=== PATIENT | female | born 1960 | race Caucasian/White ===

== ENCOUNTER → 2021-04-26 | Outpatient (CLI) | payer MEDICARE | LOC: KOH-I 16:12 | DX: M50.30 Other cervical disc degeneration, unspecified cervical region (principal) | CPT/HCPCS: 73030 ==

== ENCOUNTER → 2021-05-23 | Outpatient (CLI) | payer MEDICARE | LOC: KOH-I 13:41 | DX: M50.30 Other cervical disc degeneration, unspecified cervical region (principal); M47.812 Spondylosis without myelopathy or radiculopathy, cervical region | CPT/HCPCS: 72141 ==

== ENCOUNTER → 2021-06-18 | Outpatient (CLI) | payer MEDICARE | LOC: KOH-I 10:23 | DX: M25.512 Pain in left shoulder (principal); M19.012 Primary osteoarthritis, left shoulder; M75.22 Bicipital tendinitis, left shoulder | CPT/HCPCS: 73221 ==

== ENCOUNTER → 2021-06-26 | Outpatient (CLI) | payer MEDICARE | LOC: KOH-I 08:31 | DX: M54.6 Pain in thoracic spine (principal); M25.519 Pain in unspecified shoulder | CPT/HCPCS: 72146 ==

== ENCOUNTER → 2022-04-22 | Outpatient (CLI) | payer MEDICARE | LOC: EMI 10:50 | DX: M54.12 Radiculopathy, cervical region (principal); M48.02 Spinal stenosis, cervical region | CPT/HCPCS: 72141 ==

== ENCOUNTER → 2022-05-03 | Outpatient (CLI) | payer MEDICARE | LOC: KOH-I 10:54 | DX: Z01.89 Encounter for other specified special examinations (principal) | CPT/HCPCS: 72125 ==

== ENCOUNTER → 2022-05-23 | Outpatient (CLI) | payer MEDICARE ==
[~2022-05-23] MED LIST: CBD PO; FOLIC ACID 1 MG1 MG PO; GABAPENTIN600 MG PO; IBU800 MG PO; MAGNESIUM400 M2 PO; MEGA BIOTIN10000 MCG PO; METHOTREXATE T2.5 MG PO; OXYCODON-ACETA1 EAC1 PO; PEPCID20 MG PO; PRILOSEC OTC20 MG PO; PROVENTIL HFA6.7 GM INH; ROBAXIN 750 MG750 MG PO; SINGULAIR10 MG PO; STOOL SOFTENER100 MG PO; TOPIRAMATE50 MG PO; VITAMIN D3125 MCG PO; ZOLOFT100 MG PO; ZYRTEC10 MG PO
[2022-05-23 13:42] LABS: HEMOGLOBIN 12.4 gm/dl (12.3-15.3); RED BLOOD COUNT 4.22 M/UL (4.00-5.10); WHITE BLOOD COUNT 5.2 K/UL (4.5-11.0)
== END ==
LOC: OPSV2 12:30 → EDSTATUS 12:30 → OPSV2 12:47
PROVIDERS: Orthopaedic Surgery
DX: Z01.818 Encounter for other preprocedural examination (principal); M54.12 Radiculopathy, cervical region
CPT/HCPCS: 71046; 80048; 81001; 85027; 87081; 93005

== ENCOUNTER → 2022-06-11 | Outpatient (CLI) | payer MEDICARE ==
[~2022-06-11] MED LIST changes: +OMEPRAZOLE20 MG PO; -PRILOSEC OTC20 MG PO
== END ==
LOC: LAB 13:43
PROVIDERS: Orthopaedic Surgery
DX: Z01.812 Encounter for preprocedural laboratory examination (principal); M54.12 Radiculopathy, cervical region; G95.9 Disease of spinal cord, unspecified
CPT/HCPCS: 36415; 80048; 85610; 85730; 86850; 86900; 86901

== ENCOUNTER 2022-06-12 05:17 | Day surgery (SDC) | payer MEDICARE ==
[~2022-06-12] VITALS: Ht 175.3 cm; Wt 97.3 kg
[~2022-06-12 05:17] MED LIST changes: -ROBAXIN 750 MG750 MG PO
[2022-06-12 14:48] LABS: HEMOGLOBIN 12.6 gm/dl (12.3-15.3); RED BLOOD COUNT 4.28 M/UL (4.00-5.10); WHITE BLOOD COUNT 8.2 K/UL (4.5-11.0)
[2022-06-12] MEDS ORDERED: ROBAXIN 750 MG750 MG PO (15:00)
[2022-06-13 04:08] LABS: HEMOGLOBIN 12.2 gm/dl (12.3-15.3); RED BLOOD COUNT 4.19 M/UL (4.00-5.10); WHITE BLOOD COUNT 7.7 K/UL (4.5-11.0)
[2022-06-13 04:24] LABS: BUN/CREATININE RATIO 19 (0-10)
[2022-06-14 05:12] LABS: HEMOGLOBIN 12.2 gm/dl (12.3-15.3); RED BLOOD COUNT 4.12 M/UL (4.00-5.10)
[2022-06-14 05:15] LABS: WHITE BLOOD COUNT 10.6 K/UL (4.5-11.0)
[2022-06-14 05:43] LABS: BUN/CREATININE RATIO 21 (0-10)
== END 2022-06-14 12:04 | disposition home or self-care (01) ==
LOC: OR 05:17 → CCU 16:28 → OR 06-14 12:04
PROVIDERS: Orthopaedic Surgery
DX: M50.11 Cervical disc disorder with radiculopathy, high cervical region (principal); M06.9 Rheumatoid arthritis, unspecified; K21.9 Gastro-esophageal reflux disease without esophagitis; J45.909 Unspecified asthma, uncomplicated; E11.65 Type 2 diabetes mellitus with hyperglycemia; F41.8 Other specified anxiety disorders; M79.7 Fibromyalgia; E66.9 Obesity, unspecified; I10 Essential (primary) hypertension
CPT/HCPCS: 72040; 76000; 80048; 82962; 85025; 85027; 94640; 94664; 94760; 97116; 97162; 97166; C1713; C1762; J0690; J1100; J1170; J2001; J2250; J2405; J2704; J3010; J7040; J7050; J7120

== ENCOUNTER → 2022-07-04 | Outpatient (CLI) | payer MEDICARE ==
[~2022-07-04] MED LIST changes: +ROBAXIN 750 MG750 MG PO
== END ==
LOC: HEART 5 10:14
DX: J45.909 Unspecified asthma, uncomplicated (principal)
CPT/HCPCS: 94010